=== PATIENT | male | born 1955 | race Caucasian/White ===

== ENCOUNTER 2019-05-28 13:11 | Emergency (ER) | payer BC ==
--- NOTE | 2019-05-28 13:47 | EDM.PDOC ---
ED HPI GENERAL MEDICAL PROBLEM - General Chief Complaint: Neurological Problem Stated Complaint: POSSIBLE STROKE Time Seen by Provider: 05/28/19 13:25 Source of Information: Reports: Patient History Limitations: Reports: No Limitations - History of Present Illness INITIAL COMMENTS - FREE TEXT/NARRATIVE: 63-year-old male who reports that at about noon yesterday while he was driving from [place] he noticed that he had problems getting his words out. He states that he could think of what he wanted to say but he could not get the words out. The symptoms have improved but have not completely gone away. He has no arm or leg weakness. He has no dizziness. He has no headache. He has no nausea or vomiting. He has no chest pain. Apparently EMS was called during the initial phases of this episode and he was evaluated and was about to be transported to a hospital but the patient apparently refused transport at this time and left AGAINST MEDICAL ADVICE. He comes in today with his friend via POV reporting that he still has trouble getting his words out. He has been able to eat and drink normally. He is swallowing normally. He has no discoordination with his gait. He has no vision problems he does have pain in his right knee which is chronic and he rates that pain as 4/10. It is a sharp and aching pain and it is better after he took his "gout" medication today. There are no other associated signs or symptoms. There are no other modifying factors. Onset: Other (Yesterday at approximately noon) Duration: Other (It has improved since yesterday but has not completely gone away) Location: Reports: Lower Extremity, Right (Right knee pain which is chronic. 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: Reports: Other (see below) (Nothing) - Related Data Allergies Allergy/AdvReac Type Severity Reaction Status Date / Time No Known Allergies Allergy Verified 05/28/19 13:46 Home Meds: Home Meds NK [No Known Home Meds] 05/28/19 [History] Past Medical History Cardiovascular History: Reports: High Cholesterol, Hypertension, PVD Musculoskeletal History: Reports: Gout Neurological History: Reports: TIA - Past Surgical History Cardiovascular Surgical History: Reports: Carotid Endarterectomy (Right) Social & Family History - Tobacco Use Smoking Status *Q: Current Every Day Smoker Years of Tobacco use: 45 Packs/Tins Daily: 1.5 - Caffeine Use Caffeine Use: Reports: Soda - Alcohol Use Alcohol Use History: No - Recreational Drug Use Recreational Drug Use: Yes Recreational Drug Type: Reports: Marijuana/Hashish Recreational Drug Use Frequency: Daily - Living Situation & Occupation Living situation: Reports: Other (He is here with a friend) Occupation: Disabled Social History Comment: Patient reports that he is a DNR/DNI. ED ROS GENERAL - Review of Systems Review Of Systems: See Below Constitutional: Reports: No Symptoms HEENT: Reports: No Symptoms Respiratory: Reports: No Symptoms Cardiovascular: Reports: No Symptoms GI/Abdominal: Reports: No Symptoms : Reports: No Symptoms Musculoskeletal: Reports: No Symptoms Skin: Reports: No Symptoms Neurological: Reports: Trouble Speaking, Other (Trouble getting words out) Hematologic/Lymphatic: Reports: No Symptoms Immunologic: Reports: No Symptoms ED EXAM, NEURO - Physical Exam Exam: See Below Exam Limited By: No Limitations General Appearance: Alert, WD/WN, No Apparent Distress Eye Exam: Bilateral Eye: EOMI, Normal Inspection Ears: Normal External Exam, Hearing Loss Nose: Normal Inspection, Normal Mucosa, No Blood Throat/Mouth: Normal Voice, No Airway Compromise Head Exam: Atraumatic, Normocephalic Neck: Normal Inspection, Supple, Non-Tender, Full Range of Motion Respiratory/Chest: No Respiratory Distress, Lungs Clear, Normal Breath Sounds, No Accessory Muscle Use Cardiovascular: Normal Peripheral Pulses, Regular Rate, Rhythm, No Murmur GI/Abdominal: Normal Bowel Sounds, Soft, Non-Tender, No Mass Neurological: Alert, Normal Dorsiflexion, CN II-XII Intact, Normal Plantar Flexion, Oriented x 3, Other (Appears to be having some difficulty with his words. No facial asymmetry.) Back Exam: Normal Inspection Extremities: Normal Inspection, Normal Range of Motion, Non-Tender, No Pedal Edema, Normal Capillary Refill Psychiatric: Normal Affect Skin Exam: Warm, Dry, Intact, Normal Color, No Rash EKG INTERPRETATION EKG Date: 05/28/19 Time: 13:27 Rhythm: NSR Rate (Beats/Min): 83 [place]: Normal P-Wave: Present QRS: Normal ST-T: Other (Nonspecific ST-T changes) QT: Normal Comparison: NA - No Prior EKG Course - Vital Signs Last Recorded V/S: Last Vital Signs Temp 36.2 C 05/28/19 13:15 Pulse 83 05/28/19 13:15 Resp 15 05/28/19 13:15 BP 167/118 H 05/28/19 13:15 Pulse Ox 95 05/28/19 13:15 - Orders/Labs/Meds Orders: Active Orders 24 hr Category Date Time Status EKG Documentation Completion [RC] ASDIRECTED Care 05/28/19 13:52 Active Chest 2V [CR] Stat Exams 05/28/19 13:49 Taken Head wo Cont [CT] Stat Exams 05/28/19 13:49 Taken Peripheral IV Insertion Adult [OM.PC] Routine Oth 05/28/19 13:49 Ordered EKG 12 Lead [EK] Routine Ther 05/28/19 13:51 Ordered Labs: Laboratory Tests 05/28/19 05/28/19 05/28/19 Range/Units 14:00 14:00 14:00 WBC 11.7 (4.5-12.0) X10-3/uL RBC 5.77 H (4.30-5.75) x10(6)uL Hgb 16.6 (13.5-17.8) g/dL Hct 49.5 (30.0-51.3) % MCV 85.9 (80-96) fL MCH 28.9 (27.7-33.6) pg MCHC 33.6 (32.2-35.4) g/dL RDW 14.0 (11.5-15.5) % Plt Count 299 (125-369) X10(3)uL MPV 9.3 (7.4-10.4) fL Neut % (Auto) 69.1 (46-82) % Lymph % (Auto) 19.2 (13-37) % [place] % (Auto) 8.6 (4-12) % Eos % (Auto) 1 (1.0-5.0) % Baso % (Auto) 3 H (0-2) % Neut # (Auto) 8.1 (1.6-8.3) # Lymph # (Auto) 2.2 (0.6-5.0) # [place] # (Auto) 1.0 (0.0-1.3) # Eos # (Auto) 0.1 (0.0-0.8) # Baso # (Auto) 0.3 H (0.0-0.2) # PT 10.0 (8.7-11.1) INR 1.03 (0.89-1.13) APTT 29.3 (24.4-33.2) SECONDS Sodium 139 (135-145) mmol/L Potassium 3.7 (3.5-5.3) mmol/L Chloride 103 (100-110) mmol/L Carbon Dioxide 24 (21-32) mmol/L BUN 10 (7-18) mg/dL Creatinine 1.2 (0.70-1.30) mg/dL Est Cr Clr Drug Dosing 60.44 mL/min Estimated GFR (MDRD) > 60 (>60) BUN/Creatinine Ratio 8.3 L (9-20) Glucose 125 H (80-116) mg/dL Calcium 9.0 (8.6-10.2) mg/dL Total Bilirubin 0.5 (0.1-1.3) mg/dL AST 13 (5-25) IU/L ALT 29 (12-36) U/L Alkaline Phosphatase 86 (56-112) IU/L Troponin I (<0.017-0.056) ng/mL Total Protein 7.9 (6.0-8.0) g/dL Albumin 3.8 (3.2-4.6) g/dL Globulin 4.1 g/dL Albumin/Globulin Ratio 0.9 05/28/19 Range/Units 14:00 WBC (4.5-12.0) X10-3/uL RBC (4.30-5.75) x10(6)uL Hgb (13.5-17.8) g/dL Hct (30.0-51.3) % MCV (80-96) fL MCH (27.7-33.6) pg MCHC (32.2-35.4) g/dL RDW (11.5-15.5) % Plt Count (125-369) X10(3)uL MPV (7.4-10.4) fL Neut % (Auto) (46-82) % Lymph % (Auto) (13-37) % [place] % (Auto) (4-12) % Eos % (Auto) (1.0-5.0) % Baso % (Auto) (0-2) % Neut # (Auto) (1.6-8.3) # Lymph # (Auto) (0.6-5.0) # [place] # (Auto) (0.0-1.3) # Eos # (Auto) (0.0-0.8) # Baso # (Auto) (0.0-0.2) # PT (8.7-11.1) INR (0.89-1.13) APTT (24.4-33.2) SECONDS Sodium (135-145) mmol/L Potassium (3.5-5.3) mmol/L Chloride (100-110) mmol/L Carbon Dioxide (21-32) mmol/L BUN (7-18) mg/dL Creatinine (0.70-1.30) mg/dL Est Cr Clr Drug Dosing mL/min Estimated GFR (MDRD) (>60) BUN/Creatinine Ratio (9-20) Glucose (80-116) mg/dL Calcium (8.6-10.2) mg/dL Total Bilirubin (0.1-1.3) mg/dL AST (5-25) IU/L ALT (12-36) U/L Alkaline Phosphatase (56-112) IU/L Troponin I < 0.017 L (<0.017-0.056) ng/mL Total Protein (6.0-8.0) g/dL Albumin (3.2-4.6) g/dL Globulin g/dL Albumin/Globulin Ratio Meds: Medications Discontinued Medications Generic Name Dose Route Start Last Admin Trade Name Freq PRN Reason Stop Dose Admin Aspirin 324 mg 05/28/19 15:25 05/28/19 15:33 Aspirin PO 05/28/19 15:26 324 mg ONETIME ONE Administration Sodium Chloride 1,000 mls @ 125 mls/hr 05/28/19 15:30 05/28/19 15:34 Normal Saline IV 125 mls/hr ASDIRECTED RICHARD Administration Sodium Chloride 10 ml 05/28/19 13:49 05/28/19 13:20 Saline Flush FLUSH 10 ml ASDIRECTED PRN Administration Keep Vein Open - Radiology Interpretation Free Text/Narrative:: CT scan of head shows left posterior parietal CVA and questionable left frontal CVA. There was no evidence of bleeding. This was per the radiologist at [facility]. - Re-Assessments/Exams Free Text/Narrative Re-Assessment/Exam: 05/28/19 14:45: Patient remains with elevated blood pressure. He has been neurologically stable. The CT scan of his head does show an acute stroke in his left posterior parietal and left frontal areas. I will discuss the patient's case with the stroke neurologist at [facility] in [place]. The patient has reported that his care has been through [facility] in [place] and he would want me to discuss his case with them. 05/28/19 15:10: I discussed patient's case with Dr. Rios, stroke neurologist at [facility] in [place], and he feels the patient will need transfer to a higher level of care with admission and workup for his stroke. I will discuss this with the patient 05/28/19 15:15: I discussed this with the patient and he is agreeable to transfer. Therefore I will call and discuss the patient's case with the hospitalist. 05/28/19 15:30: I discussed patient's case with Dr. Doyle, hospitalist at [facility] in [place], and he has agreed to accept the patient in transfer for admission. The patient will need transfer to [facility] in [place] via ambulance for direct admission. The patient was given aspirin 324 mg by mouth here. Departure - Departure Time of Disposition: 16:26 Disposition: DC/Tfer to Acute Hospital 02 Condition: Critical Clinical Impression: Acute ischemic left MCA stroke, Hypertension, uncontrolled - Discharge Information Referrals: Sigifredo Lynch MD [Primary Care Provider] - Forms: ED Department Discharge - My Orders Last 24 Hours: My Active Orders 05/28/19 13:49 Chest 2V [CR] Stat Head wo Cont [CT] Stat Peripheral IV Insertion Adult [OM.PC] Routine 05/28/19 13:51 EKG 12 Lead [EK] Routine 05/28/19 13:52 EKG Documentation Completion [RC] ASDIRECTED - Assessment/Plan Last 24 Hours: My Active Orders 05/28/19 13:49 Chest 2V [CR] Stat Head wo Cont [CT] Stat Peripheral IV Insertion Adult [OM.PC] Routine 05/28/19 13:51 EKG 12 Lead [EK] Routine 05/28/19 13:52 EKG Documentation Completion [RC] ASDIRECTED
[2019-05-28] MEDS ORDERED: Sodium Chloride 0.9% 10 ML Syringe FLUSH PRN (13:49)
[2019-05-28] MEDS ORDERED: Aspirin 81 MG Tab.Chew PO ONE (15:25)
[2019-05-28] MEDS ORDERED: Sodium Chloride 0.9% 1,000 ML IV SCH (15:30)
== END 2019-05-28 16:26 ==
LOC: FB.ED 13:11
DX: I63.9 Cerebral infarction, unspecified (principal); R29.701 NIHSS score 1; I10 Essential (primary) hypertension; F17.210 Nicotine dependence, cigarettes, uncomplicated; Z86.73 Personal history of transient ischemic attack (TIA), and cerebral infarction without residual deficits
CPT/HCPCS: 36415; 70450; 71046; 80053; 82962; 84484; 85025; 85610; 85730; 93005; 96360; 99285; A9270; J7030

== ENCOUNTER 2020-05-03 14:12 | Emergency (ER) | payer MEDICARE, MEDICAID ==
[2020-05-03] MEDS ORDERED: Sodium Chloride 0.9% 10 ML Syringe FLUSH PRN (14:20)
[2020-05-03] MEDS ORDERED: Dexamethasone 4 MG/ML 5 ML MDV IVPUSH ONE ×2 (14:27→14:29)
[2020-05-03] MEDS ORDERED: MANNITOL IV ONE (14:31)
[2020-05-03] MEDS ORDERED: Ondansetron 4 MG/2 ML SDV IVPUSH ONE (14:41)
--- NOTE | 2020-05-03 14:41 | EDM.PDOC ---
ED HPI GENERAL MEDICAL PROBLEM - General Stated Complaint: Headache Time Seen by Provider: 05/03/20 14:20 Source of Information: Reports: Patient History Limitations: Reports: No Limitations - History of Present Illness INITIAL COMMENTS - FREE TEXT/NARRATIVE: Patient presented to the ED from the radiology room because of headache which started a week ago. It's an ache that doesn't go away, 4/10, with associated nausea but no vomiting. There is no associated motor or sensory deficits. There is no fever,chills, neck stiffness. - Related Data Allergies Allergy/AdvReac Type Severity Reaction Status Date / Time No Known Allergies Allergy Verified 05/28/19 13:46 Home Meds: Home Meds NK [No Known Home Meds] 05/28/19 [History] Past Medical History HEENT History: Reports: Impaired Vision Cardiovascular History: Reports: High Cholesterol, Hypertension, PVD Musculoskeletal History: Reports: Gout Neurological History: Reports: TIA - Past Surgical History Cardiovascular Surgical History: Reports: Carotid Endarterectomy (Right) Social & Family History - Caffeine Use Caffeine Use: Reports: Soda - Living Situation & Occupation Living situation: Reports: Other (He is here with a friend) Occupation: Disabled ED ROS GENERAL - Review of Systems Review Of Systems: See Below Constitutional: Reports: No Symptoms HEENT: Reports: No Symptoms Respiratory: Reports: No Symptoms Cardiovascular: Reports: No Symptoms Endocrine: Reports: No Symptoms GI/Abdominal: Reports: No Symptoms : Reports: No Symptoms Musculoskeletal: Reports: No Symptoms Skin: Reports: No Symptoms Neurological: Reports: Headache Psychiatric: Reports: No Symptoms Hematologic/Lymphatic: Reports: No Symptoms ED EXAM, NEURO - Physical Exam Exam: See Below Exam Limited By: No Limitations General Appearance: Alert, No Apparent Distress Eye Exam: Bilateral Eye: PERRL Ears: Normal External Exam, Normal [place] Nose: Normal Inspection, Normal Mucosa Throat/Mouth: Normal Inspection, Normal Lips, Normal Teeth Head Exam: Atraumatic, Normocephalic Neck: Normal Inspection, Supple, Non-Tender Respiratory/Chest: No Respiratory Distress, Lungs Clear, Normal Breath Sounds Cardiovascular: Normal Peripheral Pulses, Regular Rate, Rhythm, No Edema, No Gallop GI/Abdominal: Normal Bowel Sounds, Soft, Non-Tender Neurological: Alert, Normal Mood/Affect, Normal Dorsiflexion, CN II-XII Intact Back Exam: Normal Inspection, Full Range of Motion Extremities: Normal Inspection, Normal Range of Motion Psychiatric: Normal Affect, Normal Mood Skin Exam: Warm, Intact Course - Vital Signs Text/Narrative:: Head CT/EKG/Labs was discussed with patient Head CT-see result Mannitol 18 gm IV Dexamethasone 10 mg IV Zofran 4 mg IV Labetalol 10 mg IV Case discussed with Dr Enriquez Code Status: Full Code Last Recorded V/S: Last Vital Signs Temp 36.6 C 05/03/20 14:12 Pulse 76 05/03/20 14:28 Resp 16 05/03/20 14:28 BP 177/96 H 05/03/20 14:28 Pulse Ox 94 L 05/03/20 14:28 - Orders/Labs/Meds Orders: Active Orders 24 hr Category Date Time Status EKG Documentation Completion [RC] ASDIRECTED Care 05/03/20 14:20 Active Mannitol [Mannitol 20%] Med 05/03/20 14:31 Active 18 gm in 90 ml IV ONETIME Sodium Chloride 0.9% [Saline Flush] Med 05/03/20 14:20 Active 10 ml FLUSH ASDIRECTED PRN Saline Lock Insert [OM.PC] Routine Oth 05/03/20 14:20 Ordered EKG 12 Lead [EK] Routine Ther 05/03/20 14:20 Ordered Medication Orders Mannitol (Mannitol 20%) 18 gm in 90 mls @ 90 mls/hr 0.25 gm/kg (18 gm) IV ONETIME ONE Stop: 05/03/20 15:30 Last Admin: 05/03/20 14:46 Dose: 90 mls/hr Documented by: Sodium Chloride (Saline Flush) 10 ml FLUSH ASDIRECTED PRN PRN Reason: Keep Vein Open Last Admin: 05/03/20 14:49 Dose: 10 ml Documented by: Labs: Laboratory Tests 05/03/20 05/03/20 05/03/20 Range/Units 14:24 14:24 14:24 WBC 11.0 (4.5-12.0) X10-3/uL RBC 5.28 (4.30-5.75) x10(6)uL Hgb 14.9 (13.5-17.8) g/dL Hct 46.5 (30.0-51.3) % MCV 88.1 (80-96) fL MCH 28.2 (27.7-33.6) pg MCHC 32.0 L (32.2-35.4) g/dL RDW 13.0 (11.5-15.5) % Plt Count 305 (125-369) X10(3)uL MPV 8.8 (7.4-10.4) fL Neut % (Auto) 63.2 (46-82) % Lymph % (Auto) 24.2 (13-37) % [place] % (Auto) 10.1 (4-12) % Eos % (Auto) 1 (1.0-5.0) % Baso % (Auto) 2 (0-2) % Neut # (Auto) 6.9 (1.6-8.3) # Lymph # (Auto) 2.7 (0.6-5.0) # [place] # (Auto) 1.1 (0.0-1.3) # Eos # (Auto) 0.1 (0.0-0.8) # Baso # (Auto) 0.2 (0.0-0.2) # PT 10.4 (9.0-11.1) sec INR 0.96 L (1.00-1.24) APTT 28.2 (24.4-33.2) SECONDS Sodium 141 (135-145) mmol/L Potassium 3.6 (3.5-5.3) mmol/L Chloride 103 (100-110) mmol/L Carbon Dioxide 26 (21-32) mmol/L BUN 14 (7-18) mg/dL Creatinine 1.1 (0.70-1.30) mg/dL Est Cr Clr Drug Dosing 67.36 mL/min Estimated GFR (MDRD) > 60 (>60) BUN/Creatinine Ratio 12.7 (9-20) Glucose 101 (80-116) mg/dL Calcium 9.2 (8.6-10.2) mg/dL Total Bilirubin 0.5 (0.1-1.3) mg/dL AST 17 D (5-25) IU/L ALT 30 (12-36) U/L Alkaline Phosphatase 80 (56-112) IU/L Total Protein 7.8 (6.0-8.0) g/dL Albumin 3.6 (3.2-4.6) g/dL Globulin 4.2 g/dL Albumin/Globulin Ratio 0.9 Meds: Medications Generic Name Dose Route Start Last Admin Trade Name Johnq PRN Reason Stop Dose Admin Mannitol 18 gm in 90 mls @ 90 mls/hr 05/03/20 14:31 05/03/20 14:46 Mannitol 20% 0.25 gm/kg (18 gm) 05/03/20 15:30 90 mls/hr IV Administration ONETIME ONE Sodium Chloride 10 ml 05/03/20 14:20 05/03/20 14:49 Saline Flush FLUSH 10 ml ASDIRECTED PRN Administration Keep Vein Open Discontinued Medications Generic Name Dose Route Start Last Admin Trade Name Johnq PRN Reason Stop Dose Admin Dexamethasone 10 mg 05/03/20 14:27 Dexamethasone IVPUSH 05/03/20 14:28 ONETIME ONE Dexamethasone 10 mg 05/03/20 14:29 05/03/20 14:41 Dexamethasone IVPUSH 05/03/20 14:30 10 mg ONETIME ONE Administration Labetalol HCl 20 mg 05/03/20 14:46 Normodyne IVPUSH 05/03/20 14:47 ONETIME ONE Protocol Labetalol HCl 10 mg 05/03/20 14:47 05/03/20 14:49 Normodyne IVPUSH 05/03/20 14:48 10 mg ONETIME ONE Administration Protocol Ondansetron HCl 4 mg 05/03/20 14:41 05/03/20 14:53 Zofran IVPUSH 05/03/20 14:42 4 mg ONETIME ONE Administration Departure - Departure Time of Disposition: 15:00 Disposition: DC/Tfer to Acute Hospital 02 Condition: Good Clinical Impression: Subdural hematoma, Headache - Discharge Information Referrals: PCP,None [Ordering Only Provider] - Sepsis Event Note (ED) - Focused Exam Vital Signs: Vital Signs Temp Pulse Resp BP Pulse Ox 05/03/20 14:28 76 16 177/96 H 94 L 05/03/20 14:12 36.6 C 75 16 182/103 H 97 - My Orders Last 24 Hours: My Active Orders 05/03/20 14:20 EKG Documentation Completion [RC] ASDIRECTED Sodium Chloride 0.9% [Saline Flush] 10 ml FLUSH ASDIRECTED PRN Saline Lock Insert [OM.PC] Routine EKG 12 Lead [EK] Routine 05/03/20 14:31 Mannitol [Mannitol 20%] 18 gm in 90 ml IV ONETIME - Assessment/Plan Last 24 Hours: My Active Orders 05/03/20 14:20 EKG Documentation Completion [RC] ASDIRECTED Sodium Chloride 0.9% [Saline Flush] 10 ml FLUSH ASDIRECTED PRN Saline Lock Insert [OM.PC] Routine EKG 12 Lead [EK] Routine 05/03/20 14:31 Mannitol [Mannitol 20%] 18 gm in 90 ml IV ONETIME
[2020-05-03] MEDS ORDERED: Labetalol 20 MG/4 ML Syringe IVPUSH ONE ×3 (14:46→15:13)
== END 2020-05-03 15:26 ==
LOC: FB.ED 14:12
DX: I62.00 Nontraumatic subdural hemorrhage, unspecified (principal); I10 Essential (primary) hypertension; Z86.73 Personal history of transient ischemic attack (TIA), and cerebral infarction without residual deficits
CPT/HCPCS: 36415; 80053; 85025; 85610; 85730; 93005; 96365; 96375; 99285; J1100; J2405; J3490

== ENCOUNTER → 2023-11-18 | Day surgery (SDC) | payer MEDICARE, MEDICAID ==
[~2023-11-18] MED LIST: Lactated Ringers 1,000 ML IV SCH; Midazolam 1 MG/ML 2 ML SDV IV ONE; Sodium Chloride 0.9% 10 ML Syringe IV ONE; fentaNYL 100 MCG/2 ML SDV IV ONE
[2023-11-18] MEDS: Sodium Chloride 0.9% 10 ML Syringe FLUSH PRN (09:45)
[2023-11-18] MEDS: acetaZOLAMIDE 500 MG Cap.ER PO ONE (11:00)
== END ==
LOC: FB.SDS 08:38
PROVIDERS: ATTEND Ophthalmology
DX: H26.9 Unspecified cataract (principal)
CPT/HCPCS: 66984; A9270; J2250; J3010; J3490; V2632; 00142